=== PATIENT | male | born 1950 | race Two or more races ===

== ENCOUNTER 2022-06-01 17:02 | Emergency (ER) | payer SELFPAY ==
[~2022-06-01] VITALS: Ht 162.6 cm; Wt 70.0 kg
[~2022-06-01 17:02] MED LIST: CALCIUM CHLORIDE 1GM/10ML SYR IV ONE; EPINEPHRINE 0.1MG/ML (1:10,000) 10ML SYR ONE; SODIUM BICARBONATE 8.4% 1 MEQ/ML 50ML SYR IV ONE
[2022-06-01 17:09] VITALS: BP 0/0
== END 2022-06-01 19:38 ==
LOC: ER 17:02
DX: I46.9 Cardiac arrest, cause unspecified (principal); S09.8XXA Other specified injuries of head, initial encounter; X58.XXXA Exposure to other specified factors, initial encounter; Y93.89 Activity, other specified; Y92.9 Unspecified place or not applicable
CPT/HCPCS: 31500; 92950; 99291; J3490